=== PATIENT | male | born 1945 | race Caucasian/White ===

== ENCOUNTER 2020-01-23 15:55 | Inpatient (IN) ==
[2020-01-23 16:30] LABS: Basophils # 0.1 K/mcL (0.0-0.2); Basophils % 0.3 %; Eosinophils % 0.2 %; Hematocrit 43.4 % (37.5-50.1); Hemoglobin 14.6 g/dL (12.9-16.9); Immature Granulocytes % 0.8 % (0-4); Lymphocytes # 4.8 K/mcL (0.6-4.6); Lymphocytes % 28.6 %; Mean Corpuscular HGB Conc 33.6 g/dL (31.6-35.5); Mean Corpuscular Hemoglobin 29.6 pg (28.0-33.3); Monocytes # 1.3 K/mcL (0.0-1.3); Monocytes % 7.8 %; Neutrophils # 10.6 K/mcL (1.6-8.9); Platelet Count 252 K/mcL (140-400); Red Blood Count 4.93 M/mcL (4.19-5.50); Red Cell Distribution Width 12.3 % (11.5-14.5); Segmented Neutrophils % 62.3 %
[2020-01-23 16:46] LABS: Calcium 9.5 mg/dL (8.6-10.3); Potassium 3.8 mEq/L (3.5-5.1)
[2020-01-23 16:48] LABS: Troponin I 0.05 ng/mL (< 0.04)
[2020-01-23] MEDS ORDERED: Isovue-370 500 ML BOTTLE IVP ONE (18:00)
[2020-01-23] MEDS ORDERED: 0.9 % Sodium Chloride 500 ML IVC ONE (18:01)
[2020-01-23] MEDS ORDERED: *HR* Heparin 5,000 UNIT/ML VIAL IVP ONE (22:04)
[2020-01-23] MEDS ORDERED: *HR* Heparin 5,000 UNIT/ML VIAL IVP PRN ×2 (22:04)
[2020-01-23 22:25] LABS: Hematocrit 40.7 % (37.5-50.1); Hemoglobin 13.8 g/dL (12.9-16.9); Mean Corpuscular HGB Conc 33.9 g/dL (31.6-35.5); Mean Corpuscular Hemoglobin 29.7 pg (28.0-33.3); Mean Corpuscular Volume 87.5 fL (83.0-100.0); Mean Platelet Volume 9.8 fL (9.4-12.4); Platelet Count 188 K/mcL (140-400); Red Blood Count 4.65 M/mcL (4.19-5.50); Red Cell Distribution Width 12.3 % (11.5-14.5); White Blood Count 13.8 K/mcL (4.3-11.1)
[2020-01-23 22:28] LABS: Heparin anti-factor XA UFH < 0.04 IU/mL (0.30-0.70)
[2020-01-23 22:29] LABS: INR 1.1; Prothrombin Time 12.4 Seconds (9.4-12.1)
[2020-01-23] MEDS: Heparin 25,000 UNIT/250 ML D5W 25,000 UNIT/250 ML IV.SOLN IVC SCH (22:35)
[2020-01-23] MEDS ORDERED: Naloxone 0.4 MG/ML INJ IVP PRN (23:47)
[2020-01-24] MEDS ORDERED: Perflutren Lipid Microsphere 1.3 ML in 0.9 % Sodium Chloride 8.7 ML IVP PRN (03:43)
[2020-01-24] MEDS ORDERED: D5% in Water 1,000 ML IVC PRN (04:02)
[2020-01-24] MEDS ORDERED: Dextrose Gel 15 GM/37.5 ML TUBE PO PRN ×2 (04:02)
[2020-01-24] MEDS ORDERED: *HR* Dextrose 50 % in Water (Vial) 50 ML VIAL IVP PRN (04:02)
[2020-01-24 05:00] LABS: Basophils % 0.2 %; Eosinophils % 0.2 %; Hematocrit 38.4 % (37.5-50.1); Hemoglobin 12.9 g/dL (12.9-16.9); Immature Granulocytes % 0.8 % (0-4); Lymphocytes # 2.3 K/mcL (0.6-4.6); Lymphocytes % 16.2 %; Mean Corpuscular HGB Conc 33.6 g/dL (31.6-35.5); Mean Corpuscular Hemoglobin 29.3 pg (28.0-33.3); Mean Corpuscular Volume 87.3 fL (83.0-100.0); Mean Platelet Volume 9.7 fL (9.4-12.4); Monocytes # 1.2 K/mcL (0.0-1.3); Monocytes % 8.8 %; Neutrophils # 10.4 K/mcL (1.6-8.9); Platelet Count 194 K/mcL (140-400); Red Cell Distribution Width 12.3 % (11.5-14.5); Segmented Neutrophils % 73.8 %; White Blood Count 14.1 K/mcL (4.3-11.1)
[2020-01-24 05:18] LABS: Alanine Aminotransferase 14 Units/L (7-52); Albumin 3.4 g/dL (3.5-5.7); Albumin/Globulin Ratio 1.4 (1.1-2.2); Alkaline Phosphatase 85 Units/L (34-104); Aspartate Amino Transferase 12 Units/L (13-39); BUN/Creatinine Ratio 15 (6-26); Bilirubin,Total 0.7 mg/dL (0.3-1.0); Blood Urea Nitrogen 20 mg/dL (8-23); Calcium 8.8 mg/dL (8.6-10.3); Carbon Dioxide 21 mEq/L (23-29); Chloride 108 mEq/L (98-107); Globulin 2.4 g/dL (2.4-3.5); Glucose 224 mg/dL (70-105); Magnesium 1.4 mg/dL (1.6-2.6); Osmolality,Calculated 296 (280-300); Potassium 3.9 mEq/L (3.5-5.1); Sodium 138 mEq/L (136-145); Total Protein 5.8 g/dL (6.4-8.9); eGFR For African Americans > 60 (> 60); eGFR For Non-African Americans 52 (> 60)
[2020-01-24] MEDS: Insulin LISPRO 300 UNITS/3 ML VIAL SQ SCH ×3 (05:58→17:25)
[2020-01-24] MEDS: amLODIPine 5 MG TABLET PO SCH (09:16)
[2020-01-24] MEDS: Aspirin Enteric Coated 81 MG Tablet PO SCH (09:16)
[2020-01-24 09:25] LABS: Estimated Average Glucose 206 mg/dl
[2020-01-24] MEDS: Insulin DETEMIR 100 UNIT/ML X5UNITS SQ SCH ×2 (09:25→19:43)
[2020-01-24 09:26] LABS: Chol/HDL Ratio 5.5 (0-4.9); Troponin I 0.33 ng/mL (< 0.04)
[2020-01-24] MEDS: 0.9 % Sodium Chloride 1,000 ML IVC SCH (14:49)
[2020-01-24] MEDS: Heparin 25,000 UNIT/250 ML D5W 25,000 UNIT/250 ML IV.SOLN IVC SCH (16:18)
[2020-01-24] MEDS ORDERED: Warfarin perPT PO PRN (18:00)
[2020-01-24] MEDS ORDERED: *HR* Warfarin 5 MG TABLET PO ONE (18:00)
[2020-01-24] MEDS ORDERED: Insulin LISPRO 300 UNITS/3 ML VIAL SQ SCH (21:00)
[2020-01-25 01:38] LABS: Basophils % 0.2 %; Eosinophils # 0.1 K/mcL (0.0-0.6); Eosinophils % 0.6 %; Hematocrit 36.3 % (37.5-50.1); Hemoglobin 12.3 g/dL (12.9-16.9); Immature Granulocytes % 0.8 % (0-4); Lymphocytes # 2.6 K/mcL (0.6-4.6); Lymphocytes % 19.4 %; Mean Corpuscular HGB Conc 33.9 g/dL (31.6-35.5); Mean Corpuscular Hemoglobin 29.5 pg (28.0-33.3); Mean Corpuscular Volume 87.1 fL (83.0-100.0); Monocytes # 1.2 K/mcL (0.0-1.3); Monocytes % 8.5 %; Neutrophils # 9.5 K/mcL (1.6-8.9); Platelet Count 207 K/mcL (140-400); Red Blood Count 4.17 M/mcL (4.19-5.50); Red Cell Distribution Width 12.5 % (11.5-14.5); Segmented Neutrophils % 70.5 %; White Blood Count 13.5 K/mcL (4.3-11.1)
[2020-01-25 01:59] LABS: BUN/Creatinine Ratio 16 (6-26); Blood Urea Nitrogen 20 mg/dL (8-23); Calcium 8.5 mg/dL (8.6-10.3); Carbon Dioxide 21 mEq/L (23-29); Chloride 107 mEq/L (98-107); Glucose 190 mg/dL (70-105); Magnesium 1.7 mg/dL (1.6-2.6); Osmolality,Calculated 292 (280-300); Phosphorous 2.5 mg/dL (2.7-4.5); Potassium 3.7 mEq/L (3.5-5.1); Sodium 137 mEq/L (136-145); eGFR For African Americans > 60 (> 60); eGFR For Non-African Americans 56 (> 60)
[2020-01-25 02:08] LABS: Prothrombin Time 11.7 Seconds (9.4-12.1)
[2020-01-25] MEDS: 0.9 % Sodium Chloride 1,000 ML IVC SCH (03:53)
[2020-01-25] MEDS ORDERED: Levothyroxine 25 MCG TABLET PO SCH (06:30)
[2020-01-25] MEDS: amLODIPine 5 MG TABLET PO SCH (07:54)
[2020-01-25] MEDS: Aspirin Enteric Coated 81 MG Tablet PO SCH (07:55)
[2020-01-25] MEDS: Insulin LISPRO 300 UNITS/3 ML VIAL SQ SCH (08:35)
[2020-01-25] MEDS ORDERED: Apixaban 5 MG TABLET PO SCH ×2 (09:00→21:00)
[2020-01-25] MEDS: Insulin DETEMIR 100 UNIT/ML X5UNITS SQ SCH (09:17)
[2020-01-25] MEDS ORDERED: Apixaban 5 MG TABLET PO ONE (09:28)
[2020-01-25 11:52] VITALS: BP 138/73
[2020-01-26 16:54] LABS: Immunoglobulin A 166 mg/dL (68-408); Immunoglobulin G 752 mg/dL (768-1632); Immunoglobulin M 78 mg/dL (35-263)
[2020-02-01] MEDS ORDERED: Apixaban 5 MG TABLET PO SCH (09:00)
== END 2020-01-25 14:02 | disposition home health service (06) | DRG 280 ==
LOC: 3BNU 15:55 → EMEROOARM 15:55 → SUATTDRO 22:41 → 3BNU 23:16
PROVIDERS: ADMIT Family Medicine; ATTEND Internal Medicine